=== PATIENT | female | born 1995 | race Caucasian/White ===

== ENCOUNTER → 2016-06-17 | Outpatient (CLI) | payer OTHER ==
--- NOTE | 2016-06-17 11:38 | US ---
Ultrasound of the Abdomen, Complete Limited Abdomen Right Lower Quadrant Ultrasound History: Right-sided abdominal pain. Findings: Pancreas: Homogeneous without peripancreatic fluid. Aorta: Visualized upper abdominal aorta demonstrates no aneurysm. Liver: Homogeneous in echogenicity without definite focal lesions and measures 13.7 cm in length. Th ere is normal hepatopedal flow on color flow imaging obtained. Gallbladder: No shadowing calculi, wall thickening, or pericholecystic fluid. Common bile duct is 2 m m in diameter which is normal for age. Renal: Right kidney measures 10.3 cm and left kidney 12 cm without hydronephrosis in either kidney. Spleen: Homogeneous and 9.9 cm in length without splenomegaly. IVC: Normal Lung bases: No effusions. Limited Abdomen Right Lower Quadrant Ultrasound: Comparison to prior CT study from November 07, 2015. Bharat ign-appearing appendix is visualized draping over the external iliac vessels in the right mid pelvis measuring about 3 mm in diameter. There is no evidence of a dilated appendix. A mild amount of fluid is seen in the right lower pelvis around the cecum. Impression: 1. Normal ultrasound abdomen complete. 2. Normal-appearing appendix in the right mid iliac fossa. 3. Small amount of fluid around the cecum in the right lower quadrant.
== END ==
LOC: FIMAGING 09:39
PROVIDERS: ATTEND Physician Assistant
DX: R10.31 Right lower quadrant pain (principal)

== ENCOUNTER → 2016-08-01 | Outpatient (CLI) | payer OTHER ==
[~2016-08-01] MED LIST: IOPAMIDOL (ISOVUE-300) 100 ML BTL IV ONE
== END ==
LOC: CIMAGING 13:39
PROVIDERS: ATTEND Physician Assistant
DX: R10.31 Right lower quadrant pain (principal); R11.2 Nausea with vomiting, unspecified; R53.81 Other malaise
CPT/HCPCS: 74177-PO; Q9967

== ENCOUNTER 2017-06-09 12:40 | Inpatient (IN) | payer OTHER ==
--- NOTE | 2017-06-09 13:17 | EDPHY ---
H & P Stated Complaint: pt feeling like she may hurt herself Time Seen by Provider: 06/09/17 13:05 HPI/ROS: CHIEF COMPLAINT: Suicidal thoughts HISTORY OF PRESENT ILLNESS: The patient presents the ED with suicidal thoughts. The patient has a history of bipolar mood disorder. She is currently on Lamictal and Vyvanse. The patient reports she has been undergoing and psychotherapy which has precipitated suicidal thoughts. She denies a specific plan. She denies any overdose or acute medical complaints. REVIEW OF SYSTEMS: A comprehensive 10 point review of systems is otherwise negative aside from elements mentioned in the history of present illness. Source: Patient Exam Limitations: No limitations - Personal History LMP (Females 10-55): 1-7 Days Ago Current Tetanus/Diphtheria Vaccine: Yes Tetanus Vaccine Date: < 10 years - Medical/Surgical History Hx Asthma: Yes Hx Chronic Respiratory Disease: No Hx Diabetes: No Hx Cardiac Disease: No Hx Renal Disease: No Hx Cirrhosis: No Hx Alcoholism: No Hx HIV/AIDS: No Hx Splenectomy or Spleen Trauma: No Other PMH: Asthma, depression, anxiety, rapid cycling bipolar - Social History Smoking Status: Never smoked - Physical Exam Exam: General Appearance: Alert, tearful Eyes: Pupils equal and round no pallor or injection ENT, Mouth: Mucous membranes moist Respiratory: There are no retractions, lungs are clear to auscultation Cardiovascular: Regular rate and rhythm Gastrointestinal: Abdomen is soft and nontender, no masses, bowel sounds normal Neurological: A&O, normal motor function, normal sensory exam, normal cranial nerves Skin: Warm and dry, no rashes Musculoskeletal: Neck is supple nontender Extremities: symmetrical, full range of motion Psychiatric: Tearful, endorses suicidal ideation, rani, depression and anxiety. Constitutional: Initial Vital Signs Temperature (C) 36.5 C 06/09/17 12:53 Heart Rate 94 06/09/17 12:53 Respiratory Rate 28 H 06/09/17 12:53 Blood Pressure 140/92 H 06/09/17 12:53 O2 Sat (%) 100 06/09/17 12:53 O2 Delivery Mode Room Air Allergies/Adverse Reactions: albuterol Allergy (Verified 06/09/17 12:52) Home Medications: Medication Instructions Recorded Lisdexamfetamine Dimesylate 50 mg PO DAILY 11/07/15 [VYVANSE] lamoTRIgine [LamICTAL 100 MG (*)] 200 mg PO DAILY 11/07/15 Lunesta 03/14/16 Polyethylene Glycol 3350 [Miralax] PRN 03/14/16 Medical Decision Making ED Course/Re-evaluation: The patient presents to the ED with complaints of suicidal ideation and bipolar mood disorder. The patient has been medically cleared for psychiatric evaluation. I placed the patient on an M1 psychiatric hold. The patient was seen by the psychiatric bench shear operator. It is felt the patient meets criteria for inpatient psychiatric hospitalization. The patient will be accepted by Dr. Mansfield at the inpatient psychiatric unit at [facility]. I have filled out the EMTALA transfer form. Differential Diagnosis: Differential diagnosis considered includes suicidal ideation, psychosis, bipolar mood disorder, depression - Data Points Laboratory Results: Laboratory Results 06/09/17 13:10 06/09/17 13:10 06/09/17 06/09/17 06/09/17 15:30 13:10 13:10 WBC 5.03 10^3/uL 10^3/uL (3.80-9.50) RBC 4.82 10^6/uL 10^6/uL (4.18-5.33) Hgb 14.7 g/dL g/dL (12.6-16.3) Hct 41.9 % % (38.0-47.0) MCV 86.9 fL fL (81.5-99.8) MCH 30.5 pg pg (27.9-34.1) MCHC 35.1 g/dL g/dL (32.4-36.7) RDW 11.5 % % (11.5-15.2) Plt Count 213 10^3/uL 10^3/uL (150-400) MPV 9.5 fL fL (8.7-11.7) Neut % (Auto) 36.2 % L % (39.3-74.2) Lymph % (Auto) 48.7 % H % (15.0-45.0) [place] % (Auto) 13.7 % H % (4.5-13.0) Eos % (Auto) 0.8 % % (0.6-7.6) Baso % (Auto) 0.4 % % (0.3-1.7) Nucleat RBC Rel Count 0.0 % % (0.0-0.2) Absolute Neuts (auto) 1.82 10^3/uL 10^3/uL (1.70-6.50) Absolute Lymphs (auto) 2.45 10^3/uL 10^3/uL (1.00-3.00) Absolute Monos (auto) 0.69 10^3/uL 10^3/uL (0.30-0.80) Absolute Eos (auto) 0.04 10^3/uL 10^3/uL (0.03-0.40) Absolute Basos (auto) 0.02 10^3/uL 10^3/uL (0.02-0.10) Absolute Nucleated RBC 0.00 10^3/uL 10^3/uL (0-0.01) Immature Gran % 0.2 % % (0.0-1.1) Immature Gran # 0.01 10^3/uL 10^3/uL (0.00-0.10) Sodium 144 mEq/L mEq/L (135-145) Potassium 4.4 mEq/L mEq/L (3.5-5.2) Chloride 110 mEq/L mEq/L (97-110) Carbon Dioxide 16 mEq/l L mEq/l (22-31) Anion Gap 18 mEq/L H mEq/L (8-16) BUN 7 mg/dL mg/dL (7-23) Creatinine 0.7 mg/dL mg/dL (0.6-1.0) Estimated GFR > 60 Glucose 95 mg/dL mg/dL (70-100) Calcium 9.6 mg/dL mg/dL (8.5-10.4) Urine Opiates Screen NON-NEGATIVE H (NEGATIVE) Urine Barbiturates NEGATIVE (NEGATIVE) Ur Phencyclidine Scrn NEGATIVE (NEGATIVE) Ur Amphetamine Screen NON-NEGATIVE H (NEGATIVE) U Benzodiazepines Scrn NEGATIVE (NEGATIVE) Urine Cocaine Screen NEGATIVE (NEGATIVE) U Marijuana (THC) Screen NON-NEGATIVE H (NEGATIVE) Ethyl Alcohol < 10 mg/dL mg/dL (0-10) Medications Given: Discontinued Medications Lorazepam (Ativan) 1 mg PO EDNOW ONE Stop: 06/09/17 13:32 Last Admin: 06/09/17 13:31 Dose: 1 mg Departure - Departure Disposition: [facility] IP Clinical Impression: Suicidal ideation, Bipolar mood disorder Condition: Good
[2017-06-09 13:23] LABS: PLATELET COUNT 213 10^3/uL (150-400)
[2017-06-09] MEDS ORDERED: LORazepam 1 MG TAB ONE (13:30)
[2017-06-09] MEDS ORDERED: LORazepam 1 MG TAB PO ONE ×2 (13:31→20:33)
[2017-06-09] MEDS ORDERED: ACETAMINOPHEN 325 MG TAB PO PRN (21:48)
[2017-06-09] MEDS ORDERED: MAG HYDROX/AL HYDROX/SIMETH 30 ML UDCUP PO PRN (21:48)
[2017-06-09] MEDS ORDERED: MAGNESIUM HYDROXIDE 30 ML UDCUP PO PRN (21:48)
[2017-06-09] MEDS: LORazepam 0.5 MG TAB PO PRN (21:57)
[2017-06-09] MEDS ORDERED: LITHIUM CARBONATE 300 MG CAP PO SCH (22:00)
[2017-06-10] MEDS: LORazepam 0.5 MG TAB PO PRN (01:26)
[2017-06-10 06:20] VITALS: O2SAT 97
[2017-06-10] MEDS: lamoTRIgine 100 MG TAB PO SCH (08:40)
[2017-06-10] MEDS ORDERED: PNEUMOCOCCAL 0.5ML VACCINE VIAL IM ONE (10:32)
[2017-06-10] MEDS: LITHIUM CARBONATE ER 450 MG TAB PO SCH ×2 (12:01→20:12)
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
[2017-06-10] MEDS: hydrOXYzine HCL 25 MG TAB PO PRN ×2 (12:20→20:12)
--- NOTE | 2017-06-10 21:50 | BCON ---
[f rep st] BEHAVIORAL HEALTH CONSULTATION INTERNAL MEDICINE CONSULTATION DATE OF CONSULTATION: 06/10/2017 REFERRING PHYSICIAN: Isela Mansfield MD REASON FOR CONSULTATION: Medical clearance for Inpatient Behavioral Health stay. HISTORY OF PRESENT ILLNESS: This patient was referred to the emergency department by her outpatient psychiatrist for suicidal ideation. She was evaluated there by the Mental Health team and admitted for further psychiatric care. She currently is without any acute complaints. PAST MEDICAL HISTORY: 1. Childhood asthma. 2. Tracheomalacia. 3. Abdominal pain. 4. Bipolar disorder. PAST SURGICAL HISTORY: She has had wisdom teeth extraction. MEDICATIONS: 1. [place] 300 mg p.o. q.h.s. 2. Lisdexamfetamine 60 mg p.o. daily. 3. Lorazepam 0.5 mg p.o. q.6 hours p.r.n. 4. Lamotrigine 200 mg p.o. daily. ALLERGIES: There is an allergy listed to albuterol, which gives her anxiety. SOCIAL HISTORY: She lives alone. She is a nonsmoker. She has a job at a [employer] in [place]. FAMILY HISTORY: Noncontributory. REVIEW OF SYSTEMS: She denies pain. She denies any difficulty breathing. She is able to exercise and does not have symptoms of either asthma or tracheomalacia. She denies any abdominal symptoms and reports that her approximately 1 year of abdominal pain, as well as nausea, vomiting, and constipation, resolved with change in her stress level. Otherwise, a 10-point review of systems is negative. PHYSICAL EXAM: VITAL SIGNS: Blood pressure is 103/67, heart rate is 75, respiratory rate is 14, oxygen saturation is 97% on room air, temperature is 36.5 degrees centigrade, her weight is 59 kg, for a body mass index of 23.8. GENERAL: This is a well-nourished, well-developed woman, who appears her chronologic age, cooperative, and in no acute distress. HEENT: Extraocular movements are intact. Pupils are equal, round, reactive to light with no afferent pupillary defect. Mucous membranes are moist. Dentition is in good condition. There are no oropharyngeal mucosal lesions. She has an uncrowded airway, Mallampati class I. NECK: Supple. HEART: There is a regular rate and rhythm with no murmurs, rubs, or gallops. LUNGS: Clear to auscultation bilaterally. ABDOMEN: Benign. EXTREMITIES: There is no cyanosis, clubbing, or edema. NEUROLOGIC: She is alert and oriented x3. Cranial nerves 2-12 are grossly intact. There is no focal weakness. Sensation is intact to light touch. LABORATORY STUDIES: From the emergency department: CBC was overall within normal limits. She had a relative decrement of neutrophils and a relative increase in lymphocytes and monocytes, though the absolute numbers were all normal. Serum chemistry revealed a low carbon dioxide and a corresponding anion gap (neither one was very large). Otherwise, renal function and electrolytes were within normal limits. Beta-hCG was negative. She has had a recent normal TSH and a recent unremarkable lipid panel. Toxicology screen in the serum was negative for ethyl alcohol, and lithium level was below the lower threshold of detection of the assay. Urine toxicology screen was non-negative for opiates, amphetamines, and marijuana, and was otherwise negative for substances of abuse. ASSESSMENT AND RECOMMENDATIONS: 1. Mental health issues, pending further evaluation and management per Psychiatry and Mental Health team. 2. Tracheomalacia diagnosed as an adolescent. This is a condition which can mimic asthma. However, she is currently asymptomatic and reports that she is able to exercise. She reports that she has not used albuterol in many years. I have no concern regarding any respiratory issues during her stay in the Inpatient Behavioral Health unit. 3. Possible history of irritable bowel syndrome. Symptoms have resolved. If she has recurrence of symptoms, then evaluation and treatment along the lines of irritable bowel syndrome rather than anatomic or physiologic pathology would be appropriate. 4. Mild decrease in carbon dioxide on labs with corresponding anion gap. She does not appear to be ill and these abnormalities are of no clinical significance. I see no medical contraindications to this patient's continued stay on the Inpatient Behavioral Health unit or to any psychiatric medications or procedures. Thank you very much for including me in the care of this patient and please do not hesitate to contact me or the Hospitalist Service should there be need for further medical evaluation. /[id number]/MODL MTDD
[2017-06-11] MEDS: hydrOXYzine HCL 25 MG TAB PO PRN (04:29)
[2017-06-11 06:31] VITALS: BP 112/63; PULSE 73; RESP 12; TEMP 97.9
[2017-06-11] MEDS: LITHIUM CARBONATE ER 450 MG TAB PO SCH (08:24)
[2017-06-11] MEDS: lamoTRIgine 100 MG TAB PO SCH (08:24)
--- NOTE | 2017-06-11 12:24 | SOAPPROG ---
SOAP Progress Note Assessment/Plan: Assessment: Bipolar Disorder, I, MRE depressed with mixed features Cannabis Use Disorder PTSD and Borderline PD symptoms Patient calm, appropriate, organized, and appears euthymic, denies SI, completed safety plan. Plan: Reviewed dishchage plan: continue Lamictal 200mg and Mooar 450mg BID, follow up with Dr. Wiley to have lithium level checked Reviewed strengths, coping skills, supports Reviewed risks of Mooar including defects, hypothyroidism, renal dysfunction, drug interactions PRN Hydroxyzine 25mg QHS PRN insomnia Spoke on phone with mother Jackie regarding calling patient regularly to monitor symptoms, encourage medication compliance and follow up 06/11/17 12:24 Subjective: CC: "I feel much more calm and under control" Patient reports sleeping better initially then took PRN Hydroxyzine and got 8-9 hours total. Reports feeling calm and hopeful about the future. Reports wanting to live for mother and friends and to continue employment. Completed safety plan and reports numerous supports in [place] she can contact and numerous coping skills. Denies sedation, nausea, diarrhea. Denies racing thoughts, agitation, severe dysphoria, SI, severe anxiety, or feeling agitated. Objective: Vital Signs Temp Pulse Resp BP Pulse Ox 36.6 C 73 12 112/63 97 06/11/17 06:00 06/11/17 06:00 06/11/17 06:00 06/11/17 06:00 06/10/17 06:00 Staff report patient calm and appropriate yesterday PM and this AM in groups, eating well, socializing with patients and staff. Alert WF, NAD, ambulatory with glasses. Thoughts organized. Denies SI or HI or AH. Denies paranoia or AH. Fair insight. Appropriate judgment. Mood "better, more calm.' Affect euthymic and pleasant. - Time Spent With Patient Time Spent With Patient: 40 minutes - Pending Discharge Pending Discharge Within 24 Hours: Yes Pending Discharge Date: 06/11/17 Pending Discharge Time: 12:00 ICD10 Worksheet Patient Problems: Problems Problem Status Onset Bipolar mood disorder Acute Borderline personality disorder Acute Posttraumatic stress disorder Acute Suicidal ideation Acute Abdominal pain Acute
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
== END 2017-06-11 14:00 | disposition home or self-care (01) | DRG 885 ==
LOC: BBEH 21:00
PROVIDERS: ADMIT Psychiatry & Neurology Behavioral Neurology & Neuropsychiatry
DX: F31.63 Bipolar disorder, current episode mixed, severe, without psychotic features (principal); F43.10 Post-traumatic stress disorder, unspecified; F12.90 Cannabis use, unspecified, uncomplicated; F60.3 Borderline personality disorder
CPT/HCPCS: 80305; G0009; G0480

== ENCOUNTER → 2018-06-25 | Outpatient (CLI) | payer OTHER ==
[~2018-06-25] MED LIST changes: +GADOBUTROL 10 ML VIAL IVP ONE; -IOPAMIDOL (ISOVUE-300) 100 ML BTL IV ONE
== END ==
LOC: FIMAGING 14:59
PROVIDERS: ATTEND Internal Medicine Endocrinology, Diabetes & Metabolism
DX: R79.89 Other specified abnormal findings of blood chemistry (principal); E22.1 Hyperprolactinemia
CPT/HCPCS: A9585